=== PATIENT | male | born 1950 | race Caucasian/White ===

== ENCOUNTER 2016-12-10 15:17 | Emergency (ER) | payer MEDICARE ==
[~2016-12-10] VITALS: Ht 182.9 cm; Wt 87.3 kg
[~2016-12-10 15:17] MED LIST: AMBIEN5 MG PO; AMLODIPINE5 MG PO; AMOXICILLIN/CL875 MG OR; AMOXICILLIN875 MG OR; ARTHROTEC 75 PO; ATENOLOL50 MG OR; ATENOLOL50 MG PO; AUGMENTIN875TAB OR; CIALIS2.5 MG PO; CIALIS20 MG OR; CIALIS20 MG PO; CIPRO500 MG PO; CIPROFLOXACN500 MG PO; FLAGYL ER750 MG PO; FLAGYL500 MG OR; FLAGYL500 MG PO; FLONASE0.05 %; FLUTICASONE50 MCG; FLUZONE SPLT1 M1 IM; GABAPENTIN300 MG PO; HYDROCODONE/ACE1 TAB PO; K-DUR/KLOR-CON10 ME1 PO; KEFLEX500 M1 PO; LISINOPRIL5 MG PO; LORTAB5 PO; MEDDOSEPAK OR; MELOXICAM15 MG OR; MELOXICAM15 MG PO; MELOXICAM7.5 MG PO; METHOCARBAMOL500 MG PO; METRONIDAZOL500 MG PO; NABUMETONE500 MG; NABUMETONE750 MG OR; NABUMETONE750 MG PO; NAPROSYN250 MG OR; NASONEX50 MCG/AC; NORCO1 TAB PO; PERCOCET 5/325M1 TAB OR; PERCOCET1 TA4 PO; PHENERGAN25 MG/TAB PO; PRILOSEC20 MG OR; PRILOSEC20 MG/CAP PO; PRILOSEC40 MG PO; SIMVASTATIN40 MG PO; SIMVASTATIN80 MG PO; SKELAXIN800 MG OR; TENORMIN PO; TIZANIDINE HCL4 M1 PO; TIZANIDINE4 MG PO; TOPROL XL50 MG OR; TRAZODONE50 MG PO; VICODIN1 TAB OR; VYTORIN 10/401 TAB OR; XALATAN 0.005%2.5 ML OD; XALATAN 0.005%2.5 ML OP; ZOFRAN ODT4 MG PO; ZOLPIDEM10 M1 PO; ZOLPIDEM5 MG PO; ZOSTAVAX IM; ZYRTEC10 MG PO
[2016-12-10 16:23] LABS: HEMATOCRIT 47.4 % (39.0-50.0); HEMOGLOBIN 16.2 g/dl (14.0-18.0); IMMATURE GRANULOCYTES 0.4 % (0.0-1.0); MEAN CELL VOLUME 90.5 fL CALC (80.0-100.0); MEAN CORPUSCULAR HGB 30.9 pG CALC (26.0-32.0); MEAN CORPUSCULAR HGB CONC 34.2 g/L CALC (32.0-36.0); NEUT# 4.41 thou/uL (1.82-7.42); RED BLOOD COUNT 5.24 mill/uL (4.70-6.10); RED CELL DISTRI WIDTH 12.6 % (11.5-15.5)
[2016-12-10 16:29] LABS: ALBUMIN 4.8 g/dL (3.2-5.0); ALKALINE PHOSPHATASE 66 u/l (38-126); ANION GAP 16 (6-22 (CALC)); BILIRUBIN, TOTAL 0.5 mg/dL (0.0-1.4); BUN 21 mg/dL (8-23); BUN/CREATININE RATIO 23 (12-20 (CALC)); CALCIUM 9.7 mg/dL (8.4-10.2); CARBON DIOXIDE 28 mmol/l (22-30); CHLORIDE 100 mmol/l (95-108); CREATININE 0.9 mg/dL (0.7-1.3); GFR > 60 ML/MIN (>=60 (CALC)); GFR FOR AFR.AMER. > 60 ML/MIN (>=60 (CALC)); GLUCOSE 94 mg/dL (82-115); POTASSIUM 4.3 mmol/l (3.5-5.1); SGOT/AST 29 u/l (19-48); SGPT/ALT 34 u/l (11-66); SODIUM 139 mmol/l (137-146); TOTAL PROTEIN 7.6 g/dL (6.3-8.2)
[2016-12-10 16:41] LABS: MYOGLOBIN 52 ng/mL (0 - 121)
[2016-12-10 16:52] LABS: BARBITURATES NEGATIVE (NEGATIVE); COCAINE NEGATIVE (NEGATIVE); METHADONE NEGATIVE (NEGATIVE); TETRAHYDROCANNABIONOL NEGATIVE (NEGATIVE); TRICYLIC ANTIDEPRESSANTS NEGATIVE (NEGATIVE)
[2016-12-10 16:53] LABS: OXCYCODONE NEGATIVE (NEGATIVE); URINE BILIRUBIN - DIPSTICK NEGATIVE (NEGATIVE); URINE BLOOD DIPSTICK NEGATIVE (NEGATIVE); URINE CLARITY CLEAR; URINE COLOR YELLOW; URINE GLUCOSE - DIPSTICK NEGATIVE (NEGATIVE); URINE KETONE NEGATIVE (NEGATIVE); URINE LEUK ESTERASE NEGATIVE (NEGATIVE); URINE NITRITE - DIPSTICK NEGATIVE (Negative); URINE PROTEIN - DIPSTICK NEGATIVE (NEG-TRACE); URINE SPECIFIC GRAVITY 1.015; URINE UROBILINOGEN - DIPSTICK 0.2 E.U./dL (0.2)
[2016-12-10 18:03] VITALS: BP 153/96
== END 2016-12-10 18:05 | disposition home or self-care (01) ==
LOC: ED 15:17
PROVIDERS: Emergency Medicine
DX: I10 Essential (primary) hypertension (principal); R94.31 Abnormal electrocardiogram [ECG] [EKG]; R42 Dizziness and giddiness; R07.9 Chest pain, unspecified; R20.2 Paresthesia of skin

== ENCOUNTER 2017-07-11 08:40 | Emergency (ER) | payer MEDICARE ==
[~2017-07-11] VITALS: Ht 182.9 cm; Wt 90.0 kg
[~2017-07-11 08:40] MED LIST changes: +ADULT ASPIRIN E81 MG; +BUPROPION150 M4 PO; +LIDOCAINE51; +TRAZODONE100 MG PO; +VOLTAREN1%GEL TOP; +[UNRECOGNIZED DRUG - OTHER]
[2017-07-11 09:26] LABS: HEMATOCRIT 46.9 % (39.0-50.0); HEMOGLOBIN 15.8 g/dl (14.0-18.0); IMMATURE GRANULOCYTES 0.3 % (0.0-1.0); MEAN CELL VOLUME 92.5 fL CALC (80.0-100.0); MEAN CORPUSCULAR HGB 31.2 pG CALC (26.0-32.0); MEAN CORPUSCULAR HGB CONC 33.7 g/L CALC (32.0-36.0); NEUT# 7.45 thou/uL (1.82-7.42); RED BLOOD COUNT 5.07 mill/uL (4.70-6.10); RED CELL DISTRI WIDTH 12.5 % (11.5-15.5)
[2017-07-11 09:37] LABS: ALBUMIN 4.5 g/dL (3.2-5.0); ALKALINE PHOSPHATASE 64 u/l (38-126); ANION GAP 17 (6-22 (CALC)); BILIRUBIN, TOTAL 0.7 mg/dL (0.0-1.4); BUN 17 mg/dL (8-23); BUN/CREATININE RATIO 19 (12-20 (CALC)); CALCIUM 10.2 mg/dL (8.4-10.2); CARBON DIOXIDE 24 mmol/l (22-30); CHLORIDE 104 mmol/l (95-108); CREATININE 0.9 mg/dL (0.7-1.3); GFR > 60 ML/MIN (>=60 (CALC)); GFR FOR AFR.AMER. > 60 ML/MIN (>=60 (CALC)); GLUCOSE 147 mg/dL (82-115); POTASSIUM 4.1 mmol/l (3.5-5.1); SGOT/AST 22 u/l (19-48); SGPT/ALT 30 u/l (11-66); SODIUM 140 mmol/l (137-146); TOTAL PROTEIN 6.7 g/dL (6.3-8.2)
[2017-07-11 12:06] LABS: URINE BILIRUBIN - DIPSTICK NEGATIVE (NEGATIVE); URINE BLOOD DIPSTICK NEGATIVE (NEGATIVE); URINE COLOR YELLOW; URINE GLUCOSE - DIPSTICK NEGATIVE (NEGATIVE); URINE KETONE NEGATIVE (NEGATIVE); URINE LEUK ESTERASE NEGATIVE (NEGATIVE); URINE NITRITE - DIPSTICK NEGATIVE (Negative); URINE PROTEIN - DIPSTICK NEGATIVE (NEG-TRACE); URINE UROBILINOGEN - DIPSTICK 0.2 E.U./dL (0.2)
[2017-07-11 12:07] LABS: URINE CLARITY CLEAR
[2017-07-11] MEDS ORDERED: EC-NAPROSYN500 MG PO (14:29)
[2017-07-11] MEDS ORDERED: TRAMADOL HYDROC50 MG PO (14:29)
[2017-07-11 14:32] VITALS: BP 155/83
[2017-07-11] MEDS ORDERED: PERCOCET 5/325M1 TAB PO (15:01)
[2017-07-11] MEDS ORDERED: FLEXERIL PO (15:01)
[2017-07-13] MEDS ORDERED: FLEXERIL PO ×2 (08:34→08:41)
[2017-07-13] MEDS ORDERED: HYDROCODONE/ACE1 TAB PO ×2 (08:35→08:41)
== END 2017-07-11 15:11 | disposition home or self-care (01) ==
LOC: ED 08:40
PROVIDERS: Emergency Medicine
DX: M54.6 Pain in thoracic spine (principal); R10.32 Left lower quadrant pain; X50.0XXA Overexertion from strenuous movement or load, initial encounter; Y93.89 Activity, other specified; Y92.009 Unspecified place in unspecified non-institutional (private) residence as the place of occurrence of the external cause; Z87.19 Personal history of other diseases of the digestive system; I10 Essential (primary) hypertension
CPT/HCPCS: J1650

== ENCOUNTER 2018-06-28 13:10 | Emergency (ER) | payer MEDICARE ==
[~2018-06-28] VITALS: Ht 182.9 cm; Wt 90.9 kg
[~2018-06-28 13:10] MED LIST changes: +ATORVASTATIN CA10 MG PO; +EC-NAPROSYN500 MG PO; +FLEXERIL PO; +LOSARTAN POTASS50 MG PO; +PERCOCET 5/325M1 TAB PO; +TRAMADOL HYDROC50 MG PO
[2018-06-28] MEDS ORDERED: METRONIDAZOL500 MG PO (14:06)
[2018-06-28] MEDS ORDERED: CIPROFLOXACN500 MG PO (14:06)
[2018-06-28 14:18] LABS: HEMATOCRIT 45.2 % (39.0-50.0); HEMOGLOBIN 15.4 g/dl (14.0-18.0); IMMATURE GRANULOCYTES 0.4 % (0.0-5.0); MEAN CELL VOLUME 90.8 fL CALC (80.0-100.0); MEAN CORPUSCULAR HGB 30.9 pG CALC (26.0-32.0); MEAN CORPUSCULAR HGB CONC 34.1 g/L CALC (32.0-36.0); NEUT# 5.31 thou/uL (1.82-7.42); RED BLOOD COUNT 4.98 mill/uL (4.70-6.10); RED CELL DISTRI WIDTH 13.2 % (11.5-15.5)
[2018-06-28 14:27] LABS: ALBUMIN 4.5 g/dL (3.2-5.0); ALKALINE PHOSPHATASE 67 u/l (38-126); ANION GAP 15 (6-22 (CALC)); BILIRUBIN, TOTAL 0.8 mg/dL (0.0-1.4); BUN 18 mg/dL (8-23); BUN/CREATININE RATIO 17 (12-20 (CALC)); CARBON DIOXIDE 25 mmol/l (22-30); CHLORIDE 101 mmol/l (95-108); CREATININE 1.1 mg/dL (0.7-1.3); GFR > 60 ML/MIN (>=60 (CALC)); GFR FOR AFR.AMER. > 60 ML/MIN (>=60 (CALC)); POTASSIUM 3.5 mmol/l (3.5-5.1); SODIUM 137 mmol/l (137-146); TOTAL PROTEIN 7.2 g/dL (6.3-8.2)
[2018-06-28 14:29] LABS: SGOT/AST 78 u/l (19-48)
[2018-06-28 15:54] LABS: URINE BILIRUBIN - DIPSTICK NEGATIVE (NEGATIVE); URINE BLOOD DIPSTICK NEGATIVE (NEGATIVE); URINE COLOR YELLOW; URINE GLUCOSE - DIPSTICK NEGATIVE (NEGATIVE); URINE KETONE NEGATIVE (NEGATIVE); URINE LEUK ESTERASE NEGATIVE (NEGATIVE); URINE NITRITE - DIPSTICK NEGATIVE (Negative); URINE PROTEIN - DIPSTICK NEGATIVE (NEG-TRACE); URINE UROBILINOGEN - DIPSTICK 0.2 E.U./dL (0.2)
[2018-06-28 17:18] VITALS: BP 145/80
[2018-06-28] MEDS ORDERED: BENTYL10 MG PO (17:19)
== END 2018-06-28 17:37 | disposition home or self-care (01) ==
LOC: ED 13:10
PROVIDERS: Family Medicine
DX: R10.84 Generalized abdominal pain (principal); R19.7 Diarrhea, unspecified; I10 Essential (primary) hypertension; E78.00 Pure hypercholesterolemia, unspecified
CPT/HCPCS: Q9967

== ENCOUNTER → 2018-09-13 | Outpatient (REF) | payer MEDICARE ==
[~2018-09-13] MED LIST changes: +BENTYL10 MG PO
[2018-09-13 08:07] VITALS: BP 169/92
== END | disposition home or self-care (01) ==
LOC: PAIN/MGT 07:51
PROVIDERS: ATTEND Anesthesiology Pain Medicine
DX: Z09 Encounter for follow-up examination after completed treatment for conditions other than malignant neoplasm (principal)

== ENCOUNTER 2019-05-13 03:51 | Emergency (ER) | payer MEDICARE ==
[~2019-05-13] VITALS: Ht 182.9 cm; Wt 82.0 kg
[~2019-05-13 03:51] MED LIST changes: +MEDDOSEPAK PO; +XANAX XR0.5 MG PO
[2019-05-13] MEDS ORDERED: METOPROL TAR100 MG PO (04:09)
[2019-05-13] MEDS ORDERED: CHLORTHALID25 MG PO (04:11)
[2019-05-13 04:59] VITALS: BP 131/71
[2019-05-13] MEDS ORDERED: ORPHENADRINE100 MG PO (05:00)
== END 2019-05-13 04:59 | disposition home or self-care (01) ==
LOC: ED 03:51
DX: M54.2 Cervicalgia (principal); S16.1XXA Strain of muscle, fascia and tendon at neck level, initial encounter; X50.1XXA Overexertion from prolonged static or awkward postures, initial encounter

== ENCOUNTER 2019-05-24 05:47 | Day surgery (SDC) | payer MEDICARE ==
[~2019-05-24] VITALS: Ht 182.9 cm; Wt 85.7 kg
[~2019-05-24 05:47] MED LIST changes: +CHLORTHALID25 MG PO; +METOPROL TAR100 MG PO; +ORPHENADRINE100 MG PO
[2019-05-24 07:43] VITALS: BP 130/73
[2019-06-06] MEDS ORDERED: HYDROCODONE/ACE1 TAB PO (08:20)
[2019-07-04] MEDS ORDERED: HYDROCODONE/ACE1 TAB PO (08:19)
[2019-08-01] MEDS ORDERED: HYDROCODONE/ACE1 TAB PO ×2 (08:23→08:24)
== END 2019-05-24 08:41 | disposition home or self-care (01) ==
LOC: ORM 05:47
PROVIDERS: ATTEND Anesthesiology Pain Medicine
DX: M12.9 Arthropathy, unspecified (principal); M54.2 Cervicalgia

== ENCOUNTER 2021-09-12 09:34 | Emergency (ER) | payer MEDICARE, OTHER ==
[~2021-09-12] VITALS: Ht 182.9 cm; Wt 79.5 kg
[~2021-09-12 09:34] MED LIST changes: +LORTAB 1010 MG PO
[2021-09-12] MEDS ORDERED: FLEXERIL5 M1 PO (11:10)
[2021-09-12] MEDS ORDERED: MEDDOSEPAK PO (11:10)
[2021-09-12 11:30] VITALS: BP 122/71
== END 2021-09-12 11:36 | disposition home or self-care (01) ==
LOC: ED 09:34
DX: S39.012A Strain of muscle, fascia and tendon of lower back, initial encounter (principal); I10 Essential (primary) hypertension; X58.XXXA Exposure to other specified factors, initial encounter